=== PATIENT | female | born 1935 | race Hispanic/Latino ===

== ENCOUNTER 2019-03-05 07:40 | Day surgery (SDC) | payer MEDICARE ==
[~2019-03-05] VITALS: Ht 147.3 cm; Wt 46.3 kg
[~2019-03-05 07:40] MED LIST: SODIUM CHLORIDE 0.9% 1000ML 1,000 ML IV ONE
[2019-03-05] MEDS ORDERED: LISI-613 PO (09:44)
[2019-03-05] MEDS ORDERED: ASPI-555 PO (09:44)
[2019-03-05] MEDS ORDERED: MULT-1290 PO (09:44)
[2019-03-05] MEDS ORDERED: PARO-37 PO (09:44)
[2019-03-05] MEDS ORDERED: ESOM40CA54 PO (09:44)
[2019-03-05] MEDS ORDERED: LEVO25TA54 PO (09:44)
[2019-03-05] MEDS ORDERED: FISH1CAP63 PO (09:44)
[2019-03-05] MEDS ORDERED: CALC-909 PO (09:44)
[2019-03-05] MEDS ORDERED: PROPOFOL 10 MG/ML 20ML VIAL IV ONE (10:39)
[2019-03-05] MEDS ORDERED: GLYCOPYRROLATE 0.2 MG/ML 5 ML VIAL ONE (10:44)
[2019-03-05 10:51] VITALS: BP 125/57
[2019-03-05 10:56] VITALS: BP 106/56
[2019-03-05 11:01] VITALS: BP 102/47
[2019-03-05 11:06] VITALS: BP 110/47
[2019-03-05 11:11] VITALS: BP 135/67
[2019-03-05 11:16] VITALS: BP 136/74
== END 2019-03-05 11:20 | disposition home or self-care (01) ==
LOC: ENDO 07:40 → DAH 07:40 → ENDO 11:20
PROVIDERS: ATTEND Internal Medicine
DX: C16.1 Malignant neoplasm of fundus of stomach (principal); K64.0 First degree hemorrhoids; K57.30 Diverticulosis of large intestine without perforation or abscess without bleeding; K29.70 Gastritis, unspecified, without bleeding; B96.81 Helicobacter pylori [H. pylori] as the cause of diseases classified elsewhere; D50.9 Iron deficiency anemia, unspecified; K25.4 Chronic or unspecified gastric ulcer with hemorrhage; K44.9 Diaphragmatic hernia without obstruction or gangrene; I10 Essential (primary) hypertension; E78.5 Hyperlipidemia, unspecified; Z79.82 Long term (current) use of aspirin; Z86.73 Personal history of transient ischemic attack (TIA), and cerebral infarction without residual deficits; Z98.890 Other specified postprocedural states; Z82.49 Family history of ischemic heart disease and other diseases of the circulatory system; Z83.3 Family history of diabetes mellitus; Z82.3 Family history of stroke
CPT/HCPCS: 43236; 43239; 45378; 88305; A4606; J2704; J3490; J7030

== ENCOUNTER → 2019-03-17 | Outpatient (CLI) | payer MEDICARE ==
[~2019-03-17] MED LIST changes: +ASPI-555 PO; +CALC-909 PO; +ESOM40CA54 PO; +FISH1CAP63 PO; +IOHEXOL 350 MG/ML 100ML INFUS..BTL IV ONE; +LEVO25TA54 PO; +LISI-613 PO; +MULT-1290 PO; +PARO-37 PO; -SODIUM CHLORIDE 0.9% 1000ML 1,000 ML IV ONE
== END | disposition home or self-care (01) ==
LOC: RAH 07:47
PROVIDERS: ATTEND Internal Medicine Gastroenterology
DX: C16.0 Malignant neoplasm of cardia (principal); I25.10 Atherosclerotic heart disease of native coronary artery without angina pectoris; R91.1 Solitary pulmonary nodule; J98.4 Other disorders of lung; M47.815 Spondylosis without myelopathy or radiculopathy, thoracolumbar region
CPT/HCPCS: 71270; 74178; Q9967

== ENCOUNTER 2019-03-26 06:33 | Day surgery (SDC) | payer MEDICARE ==
[~2019-03-26] VITALS: Ht 142.2 cm; Wt 45.4 kg
[~2019-03-26 06:33] MED LIST changes: -IOHEXOL 350 MG/ML 100ML INFUS..BTL IV ONE; +SODIUM CHLORIDE 0.9% 1000ML 1,000 ML IV ONE
[2019-03-26 09:10] VITALS: BP 145/49
[2019-03-26] MEDS ORDERED: LIDOCAINE HCL 2% 20ML ONE (09:53)
[2019-03-26] MEDS ORDERED: PROPOFOL 10 MG/ML 20ML VIAL IV ONE (09:53)
[2019-03-26] MEDS ORDERED: PHENYLEPHRINE HCL 10 MG/ML 1ML VIAL IV ONE (09:54)
[2019-03-26 10:12] VITALS: BP 84/30
[2019-03-26 10:17] VITALS: BP 90/33
[2019-03-26 10:22] VITALS: BP 107/38
[2019-03-26 10:27] VITALS: BP 108/54
--- NOTE | 2019-03-26 10:43 | NUR ---
PT LEFT VIA WHEELCHAIR IN PVT CAR WITH DAUGHTER, D/C INSTRUCTIONS GIVEN TO DAUGHTER WITH FOLLOW UP APPT.
--- NOTE | 2019-03-26 11:46 | NUR ---
PT LEFT VIA WHEEL CHAIR LEFT IN PVT CAR WITH FU APPT GIVEN TO SON. NO COMPLICATIONS
== END 2019-03-26 10:27 | disposition home or self-care (01) ==
LOC: DAH 06:33 → ENDO 06:33
PROVIDERS: ATTEND Internal Medicine Gastroenterology
DX: C16.1 Malignant neoplasm of fundus of stomach (principal); E78.5 Hyperlipidemia, unspecified; I10 Essential (primary) hypertension; F41.9 Anxiety disorder, unspecified; F32.9 Major depressive disorder, single episode, unspecified; D50.9 Iron deficiency anemia, unspecified; Z86.73 Personal history of transient ischemic attack (TIA), and cerebral infarction without residual deficits; Z98.890 Other specified postprocedural states; Z79.82 Long term (current) use of aspirin; Z79.899 Other long term (current) drug therapy; Z82.49 Family history of ischemic heart disease and other diseases of the circulatory system; Z83.3 Family history of diabetes mellitus; Z82.3 Family history of stroke
CPT/HCPCS: 43259; A4221; A4222; A4223; A4335; A4606; A4663; J2370; J2704; J3490; J7030